=== PATIENT | female | born 1950 | race Two or more races ===

== ENCOUNTER 2023-12-29 20:34 | Emergency (ER) | payer MEDICARE, SELFPAY ==
[2023-12-29 20:41] VITALS: BP 212/91
[2023-12-29 20:49] VITALS: BP 193/126
[2023-12-29 20:50] LABS: Glucose - Point of Care 135 mg/dl (70-99)
[2023-12-29 20:59] LABS: % Basophils 0.6 % (0-2); % Eosinophils 1.1 % (0-6); % Immature Granulocytes 0.5 % (0-0.5); % Lymphocytes 27.1 % (20.5-51.1); % Monocytes 11.3 % (1.7-9.3); % Neutrophils 59.4 % (42.2-75.2); Absolute Basophils 0.1 10^3/uL (0-0.2); Absolute Eosinophils 0.1 10^3/uL (0-0.7); Absolute Immature Granulocytes 0.1 10^3/uL (0-0.05); Absolute Lymphocytes 2.6 10^3/uL (1.2-3.4); Absolute Monocytes 1.1 10^3/uL (0.1-0.6); Absolute Neutrophils 5.6 10^3/uL (1.4-6.5); Hematocrit 41.8 % (37.0-47.0); Hemoglobin 14.8 g/dL (12.0-16.0); Mean Corp Hgb Conc. 35.4 g/dL (33.0-37.0); Mean Corpuscular Hgb 31.5 pg (27.0-31.0); Mean Corpuscular Volume 88.9 fL (81.0-99.0); Mean Platelet Volume 12.2 fL (7.4-10.4); Nucleated Red Blood Cells % 0 %; Platelet Count 162 10^3/uL (130-400); Red Cell Dist. Width 12.9 % (11.5-14.5); White Blood Cell Count 9.4 10^3/uL (4.8-10.8)
[2023-12-29 21:00] VITALS: BP 144/111
[2023-12-29 21:15] LABS: ALT (SGPT) 30 U/L (0-35); AST (SGOT) 39 U/L (14-36); Albumin 4.9 g/dl (3.5-5.0); Alkaline Phosphatase 70 U/L (38-126); Blood Urea Nitrogen 25 mg/dl (7-17); Calcium 10.2 mg/dl (8.4-10.2); Carbon Dioxide 25 mmol/L (22-30); Chloride 101 mmol/L (98-107); Glucose 134 mg/dl (70-99); Potassium 3.9 mmol/L (3.5-5.1); Sodium 140 mmol/L (135-145); Total Bilirubin 0.4 mg/dl (0.2-1.3); Total Protein 7.9 g/dl (6.3-8.2); eGFR > 60.00
[2023-12-29 21:33] VITALS: BP 175/92
[2023-12-29 22:00] VITALS: BP 180/86
--- NOTE | 2023-12-29 22:28 | ED.GENMED ---
History of Present Illness
General
Chief Complaint: Dizziness
Source: patient
Exam Limitations: none
Time Seen by Provider: 12/29/23 21:15
History of Present Illness
History of Present Illness:
This is a 73 year old female that comes in with c/o dizziness. State that she was dozing and when she awoke with dizziness and could hardly walk. States that when she had her stroke in 2014 it was worse but it was the same in that she had balance
issues. States that right now it is not as bad as it was but she felt that her BP and HR were elevated. States that she also had shaking that she was unable to stop like a tremor. States that she does have clogged sinuses. States that she has a
headache with the dizziness. Denies any fever, chills, chest pain, SOB, abd pain, nausea, vomiting, diarrhea, urinary burning.
Past History
Past History
ED Past Medical History: CVA (Swallowing difficulty and balance issues), HTN and Other (Arthritis of the neck); Negative Asthma or Hypercholesterolemia
ED Past Surgical History: None
Social History
Tobacco: Former smoker
Alcohol: None
Personal: Single
Living: alone
Review of Systems
Review of Systems
All Other Systems: ROS reviewed and negative except as documented in HPI and ROS
Constitutional: Reports no symptoms; Denies fever or chills
EENT: Reports no symptoms
Respiratory: Reports no symptoms; Denies cough or trouble breathing
Cardiac: Denies chest pain
ABD/GI: Reports no symptoms; Denies abdominal pain, nausea, vomiting or diarrhea
: Reports no symptoms; Denies dysuria, frequency or urgency
Musculoskeletal: Reports no symptoms
Skin: Reports no symptoms
Neurological: Reports dizzy, headache and other (couldn't walk due to balance)
Psychiatric: Reports no symptoms
Phy Exam
General Physical Exam
General Presentation: no apparent distress
General age: appears stated age
General Skin: warm and dry
General Habitus: elderly
General Mental: alert
General Hydration: dry mucous membranes
ENT Exam
ENT Exam: TM's normal, pharynx normal and neck supple
Eye Exam
Eye Exam: PERRL and EOMI
Cardiovascular Exam
Cardiovascular Exam: regular rate/rhythm, no edema, no murmur and normal peripheral pulses
Pulmonary Exam
Pulmonary Exam: lungs clear, no respiratory distress, no rales, chest non tender, no crackles, no rhonchi, no wheezing and no cough
Gastrointestinal Exam
Gastrointestinal Exam: normal bowel sounds, non tender, soft, no organomegaly, no pulsatile mass and non distended
NIH Stroke Score
Level of Consciousness: 0 - Alert
LOC questions: 0-Answers both correctly
LOC Commands: 0-Performs both correctly
Best Gaze: 0-Normal
Visual Cazares: 0=Normal, no visual loss
Facial palsy: 0=Normal, symmetrical
Motor - Right Arm: 0=No drift 10 seconds
Motor - Left Arm: 0=No drift 10 seconds
Motor - Right Le-No drift 5 seconds
Motor - Left Le-No drift 5 seconds
Limb Ataxia: 0-Absent
Sensation: 0-Normal
Best Language: 0-No aphasia
Dysarthria: 0-Normal
Extinction and Inattention: 0-No abnormality
Total Score:: 0
Musculoskeletal Exam
Musculoskeletal Exam: full ROM, no edema and other (Hand grasp and push pulls equal)
Skin Exam
Skin Exam: normal color, warm/dry, no rash and no petechia
Psychiatric Exam
Psychiatric Exam: normal mood/affect
Course
Orders/Labs/Results
Orders:
Orders
12/29/23 20:39
EKG [Electrocardiogram (*1)] Urgent
Reason for Study: Vertigo / Dizzy
EKG- Treatment ONCE
12/29/23 20:52
CBC/With Diff [Complete Blood Count/With Diff] Urgent
CMP [Comprehensive Metabolic Panel] Urgent
12/29/23 22:26
0.9% Sodium Chloride 1000 ml [Nss] 1,000 ml IV BOLUS
Meclizine [Antivert] 50 mg PO NOW STA
12/29/23 22:27
CT Head W/o Iv Contrast Urgent
Comment: pRIOR cva
Reason For Exam: dIZZINESS, BALANCE OFF
12/29/23 22:55
Troponin I Urgent
12/29/23 23:30
Urinalysis Reflex To Culture Urgent
Date Specimen was Collected: 12/29/23
Time Specimen was Collected: 22:50
Abnormal Lab Results
12/29/23 12/29/23
20:49 20:52
MCH 31.5 H pg
(27.0-31.0)
MPV 12.2 H fL
(7.4-10.4)
Abs Immat Gran (auto) 0.1 H 10^3/uL
(0-0.05)
Absolute Monos (auto) 1.1 H 10^3/uL
(0.1-0.6)
Monocytes % 11.3 H %
(1.7-9.3)
BUN 25 H mg/dl
(7-17)
Glucose 134 H mg/dl
(70-99)
AST 39 H U/L
(14-36)
POC Glucose 135 H mg/dl
(70-99)
12/29/23 20:52
12/29/23 20:52
Dehydration AST slighlty elevated.
Vital Signs
Initial and Last Documented VS:
Initial Vital Signs
Temp Pulse Resp BP Pulse Ox
98.7 F 99 22 212/91 98
12/29/23 20:41 12/29/23 20:41 12/29/23 20:41 12/29/23 20:41 12/29/23 20:41
Last Documented Vital Signs
Temp Pulse Resp BP Pulse Ox
98.7 F 93 14 163/72 98
12/29/23 20:41 12/29/23 23:33 12/29/23 23:33 12/29/23 23:33 12/29/23 23:33
MDM/Problems Addressed
Differential Diagnosis Includes:
CVA, Vertigo
MDM/Problems Addressed:
This is a 73 year old female that comes in with c/o dizziness. States that she was dozing and when she got up her balance was off and she was dizzy. States that she could hardly walk.
Will check labs, urine, CT head and medicate with Antivert. Will also give IV fluids.
back into see patient. Patient states that she is feeling better. Patient has been able to walk to the bathroom without assistance. Explained that her blood work did show dehydration and that her CT is negative for any acute process. Old infarct was
noted. Patient urine is negative for infection. Her dizziness may be due to her dehydrated and vertigo. Will give patient a prescription for Antivert and have patient follow up with the family doctor. Patient to return with any concerns.
Chronic conditions affecting care: Neurological disorder (CVA, balance issues)
Acute Exacerbation and/or Progression of Chronic Illness: Neurological disorder (CVA, Balance issues)
*Radiology
Radiology exam reviewed: radiology read reviewed (CT head night hawk- Old infarct in the left cerebellum. NO definite acute infarct however MRI would have increased sensitivity. No acute intracranial hemorrhage, mass effect, or midline shift. Mild
global volume loss and chronic small vessel ischemia. )
*Pulse Oximetry
Patient hypoxic: no
*EKG
Interpreted by ED Provider?: Yes
Heart Rate: 78
Rate: normal
Rhythm: sinus arrhythmia
[place]: normal axis
Interval: normal interval
QRS Pattern: normal QRS
Ischemia: no ischemia
*Set Up Inspector Interpretation
Rate: normal
Heart Rate: 88
Rhythm: sinus
*Critical Care Note
Total Time (30-74mins, 75-104mins- exclusive of procedures): Not Applicable
ED Attending Note
-
Portions of this chart may have been created with voice recognition software.� Occasional wrong word or��sound alike� substitutions may have occurred due to the inherent limitations of voice recognition software.
Discharge Plan
Departure
Patient Disposition: Home (Routine Discharge)
Date of Disposition: 12/30/23
Time of Disposition: 00:20
Patient with high blood pressure during this ER visit?: Yes
Condition: Good
Covid-19: Not Applicable
Discharge Problem:
Dizziness
Instructions: Vertigo (a Type of Dizziness) (DC), BLOOD PRESSURE
Prescriptions:
New
meclizine [Antivert] 50 mg tablet
50 mg PO BID PRN (Reason: dizziness) Qty: 15 0RF
Referrals:
Elizabeth Martin DO [Family Provider] - Follow up in 2-3 days
Activity Restrictions/Additional Instructions:
As discussed, your blood work shows that you are dehydrated. Your Urine is negative for infection and your CT of the head is normal. You have been given Antivert here and your dizziness has improved. Please increase your water intake to 8-8oz
glasses daily. You have had a prescription sent to the Pharmacy for Antivert to help with any dizziness. Please follow up with the family doctor in the next 2- 3 days for recheck. IF YOU HAVE INCREASED DIZZINESS, OR YOU HAVE ANY OTHER CONCERNS
PLEASE RETURN TO THE EMERGENCY ROOM.
Interventions
Interventions:
*Risk Screen - Suicide Last Done: 12/29/23 20:41
*General Assessment Last Done: 12/29/23 20:41
*Neglect/Abuse Screening Last Done: 12/29/23 20:41
ED- Fall Risk Assessment Last Done: 12/29/23 23:46
*ED COVID-19 Vaccine History Last Done: 12/29/23 23:46
ED- Neurological Assessment Last Done: 12/29/23 21:25
ED- Cardiac Assessment Last Done: 12/29/23 21:25
Discharge Date and Time
Print Language: [place]
[2023-12-29] MEDS: ANTIVERT 50 MG PO (22:55)
[2023-12-29] MEDS: NSS 1000 IV (22:56)
[2023-12-29 23:33] VITALS: BP 163/72
[2023-12-29 23:37] LABS: Troponin I < 0.012 ng/ml
[2023-12-29 23:40] LABS: Urine Albumin Negative (Neg - Trace); Urine Bilirubin Negative (Negative); Urine Character Clear (Clear); Urine Color Straw; Urine Glucose Negative (Negative); Urine Ketone Negative (Negative); Urine Leukocyte Negative (Negative); Urine Nitrite Negative (Negative); Urine Occult Blood Negative (Negative); Urine Specific Gravity 1.005 (<1.030); Urine Urobilinogen Negative (Neg - 1+)
[2023-12-30] VITALS: BP 188/87
== END 2023-12-30 00:46 | disposition home or self-care (01) ==
LOC: EMR 20:34
PROVIDERS: Clinical Nurse Specialist Family Health; Emergency Medicine; EMERGENCY PHYSICIAN Student in an Organized Health Care Education/Training Program; FAMILY PHYSICIAN Family Medicine
DX: R42 Dizziness and giddiness (principal); I10 Essential (primary) hypertension; Z86.73 Personal history of transient ischemic attack (TIA), and cerebral infarction without residual deficits; Z87.891 Personal history of nicotine dependence
CPT/HCPCS: 99284; 70450; 80053; 81003; 82962; 84484; 85025; 93005

== ENCOUNTER 2023-12-31 18:06 | Emergency (ER) | payer MEDICARE, SELFPAY ==
--- NOTE | 2023-12-31 18:18 | ED.GENMED ---
ED Provider Triage
-
Patient seen by provider in Triage?: Seen in Triage
Attestation: A medical screening examination has been initiated by a qualified medical provider. Based on the assessment performed at this time, it has been determined that an emergent medical condition may exist and the patient has been informed
that further medical evaluation and possible additional diagnostic testing may be needed.
HPI: 73yoF here with shakiness while walking the dog 1 hour ago. Friend said it looked like she was going to pass out. Also c/o being thirsty. Seen in ED earlier this week for similar symptoms. CT head negative at that time.
GENERAL: Alert , in no apparent distress
EYE: No visual abnormalities.
NECK: Trachea midline
ENT: No visible abnormalities.
LUNGS: No acute respiratory distress
NEUROLOGICAL: Alert and oriented
SKIN: Skin intact. No visible changes.
MUSCULOSKELETAL: Moving extremities normally
PSYCH: Normal and appropriate interaction.
This is a medical evaluation conducted in person to initiate diagnostic evaluation and provide initial therapeutics. Please see further documentation by the treating clinician.
Cardiac labs and EKG ordered.
History of Present Illness
General
Chief Complaint: Weakness
Past History
Past History
ED Past Medical History: CVA (Swallowing difficulty and balance issues), HTN and Other (Arthritis of the neck); Negative Asthma or Hypercholesterolemia
ED Past Surgical History: None
Social History
Tobacco: Former smoker
Alcohol: None
Personal: Single
Living: alone
ED Attending Note
-
Portions of this chart may have been created with voice recognition software.� Occasional wrong word or��sound alike� substitutions may have occurred due to the inherent limitations of voice recognition software.
Discharge Plan
Departure
Prescriptions:
No Action
meclizine [Antivert] 50 mg tablet
50 mg PO BID PRN (Reason: dizziness) Qty: 15 0RF
Discharge Date and Time
Print Language: [place]
[2023-12-31 18:19] VITALS: BP 175/100
[2023-12-31 19:05] LABS: % Basophils 0.6 % (0-2); % Eosinophils 1.2 % (0-6); % Immature Granulocytes 0.3 % (0-0.5); % Lymphocytes 19.2 % (20.5-51.1); % Monocytes 8.5 % (1.7-9.3); % Neutrophils 70.2 % (42.2-75.2); Absolute Basophils 0.1 10^3/uL (0-0.2); Absolute Eosinophils 0.1 10^3/uL (0-0.7); Absolute Lymphocytes 1.8 10^3/uL (1.2-3.4); Absolute Monocytes 0.8 10^3/uL (0.1-0.6); Absolute Neutrophils 6.5 10^3/uL (1.4-6.5); Hematocrit 40.9 % (37.0-47.0); Hemoglobin 14.6 g/dL (12.0-16.0); Mean Corp Hgb Conc. 35.7 g/dL (33.0-37.0); Mean Corpuscular Hgb 31.6 pg (27.0-31.0); Mean Corpuscular Volume 88.5 fL (81.0-99.0); Mean Platelet Volume 12.2 fL (7.4-10.4); Nucleated Red Blood Cells % 0 %; Platelet Count 152 10^3/uL (130-400); Red Blood Cell Count 4.62 10^6/uL (4.20-5.40); Red Cell Dist. Width 13.2 % (11.5-14.5); White Blood Cell Count 9.3 10^3/uL (4.8-10.8)
[2023-12-31 19:26] LABS: Troponin I < 0.012 ng/ml
[2023-12-31 19:47] LABS: ALT (SGPT) 33 U/L (0-35); AST (SGOT) 47 U/L (14-36); Albumin 4.7 g/dl (3.5-5.0); Alkaline Phosphatase 81 U/L (38-126); Blood Urea Nitrogen 22 mg/dl (7-17); Carbon Dioxide 24 mmol/L (22-30); Chloride 101 mmol/L (98-107); Glucose 115 mg/dl (70-99); Potassium 4.2 mmol/L (3.5-5.1); Sodium 139 mmol/L (135-145); Total Bilirubin 0.4 mg/dl (0.2-1.3); Total Protein 7.7 g/dl (6.3-8.2); eGFR > 60.00
[2023-12-31 21:15] VITALS: BP 178/84
--- NOTE | 2023-12-31 21:53 | ED.GENMED ---
History of Present Illness
<ANDERSON Strange - Last Filed: 12/31/23 23:09>
General
Chief Complaint: Weakness
Source: patient
Exam Limitations: none
Time Seen by Provider: 12/31/23 21:09
History of Present Illness
History of Present Illness:
This is a 73 year old female that comes in with c/o tremors. States that she was here 2 nights ago as she had shaking and dizziness. Tonight she was out walking the dog with the neighbor and her hand started to shake. States that the neighbor was a
nurse and she told her to come to the ER. States that she has been sleeping a lot lately and she felt hot and her heart was racing. States that she thought maybe it was a reaction to the propel. Denies any fever, chest pain, SOB, abd pain, nausea,
vomiting, diarrhea, headache, dizziness, urinary burning.
Past History
<ANDERSON Strange - Last Filed: 12/31/23 23:09>
Past History
ED Past Medical History: CVA (Swallowing difficulty and balance issues), HTN, Hypercholesterolemia and Other (Arthritis of the neck); Negative Asthma
ED Past Surgical History: None
Social History
Tobacco: Former smoker
Alcohol: None
Personal: Single
Living: alone
Review of Systems
<ANDERSON Strange - Last Filed: 12/31/23 23:09>
Review of Systems
All Other Systems: ROS reviewed and negative except as documented in HPI and ROS
Constitutional: Denies fever or chills
EENT: Reports no symptoms
Respiratory: Reports no symptoms; Denies cough or trouble breathing
Cardiac: Reports no symptoms; Denies chest pain
ABD/GI: Reports no symptoms; Denies abdominal pain, nausea, vomiting or diarrhea
: Reports frequency; Denies dysuria or urgency
Musculoskeletal: Reports no symptoms
Skin: Reports no symptoms
Neurological: Reports other (Tremors slight left hand); Denies dizzy or headache
Psychiatric: Reports no symptoms
Phy Exam
<ANDERSON Strange - Last Filed: 12/31/23 23:09>
General Physical Exam
General Presentation: well appearing and no apparent distress
General age: appears stated age
General Skin: warm and dry
General Habitus: normal
General Mental: alert
General Hydration: dry mucous membranes
ENT Exam
ENT Exam: TM's normal, pharynx normal and neck supple
Eye Exam
Eye Exam: EOMI
Cardiovascular Exam
Cardiovascular Exam: regular rate/rhythm, no edema, no murmur and normal peripheral pulses
Pulmonary Exam
Pulmonary Exam: lungs clear, no respiratory distress, no rales, chest non tender, no crackles, no rhonchi, no wheezing and no cough
Gastrointestinal Exam
Gastrointestinal Exam: normal bowel sounds, non tender, soft, no organomegaly, no pulsatile mass and non distended
Musculoskeletal Exam
Musculoskeletal Exam: full ROM and no edema
Skin Exam
Skin Exam: normal color, warm/dry, no rash and no petechia
Psychiatric Exam
Psychiatric Exam: normal mood/affect
Course
<ANDERSON Strange - Last Filed: 12/31/23 23:09>
Orders/Labs/Results
Orders:
Orders
12/31/23 18:21
Electrocardiogram (*1) Urgent
Reason for Study: Vertigo / Dizzy
EKG- Treatment ONCE
12/31/23 18:55
Complete Blood Count/With Diff Urgent
Comprehensive Metabolic Panel Urgent
Troponin I Urgent
Abnormal Lab Results
12/31/23
18:55
MCH 31.6 H pg
(27.0-31.0)
MPV 12.2 H fL
(7.4-10.4)
Absolute Monos (auto) 0.8 H 10^3/uL
(0.1-0.6)
Lymphocytes % 19.2 L %
(20.5-51.1)
BUN 22 H mg/dl
(7-17)
Glucose 115 H mg/dl
(70-99)
AST 47 H U/L
(14-36)
12/31/23 18:55
12/31/23 18:55
Dehydration. Hyperglycemia. AST mildly elevated. Troponin <0.012
Vital Signs
Initial and Last Documented VS:
Initial Vital Signs
Temp Pulse Resp BP Pulse Ox
98.6 F 71 18 175/100 98
12/31/23 18:19 12/31/23 18:19 12/31/23 18:19 12/31/23 18:19 12/31/23 18:19
Last Documented Vital Signs
Temp Pulse Resp BP Pulse Ox
98.6 F 83 18 178/84 95
12/31/23 18:19 12/31/23 21:22 12/31/23 18:19 12/31/23 21:15 12/31/23 21:45
Parislt;Mian Paredes, - Last Filed: 01/01/24 00:51>
Orders/Labs/Results
Orders:
Orders
12/31/23 18:21
Electrocardiogram (*1) Urgent
Reason for Study: Vertigo / Dizzy
EKG- Treatment ONCE
12/31/23 18:55
Complete Blood Count/With Diff Urgent
Comprehensive Metabolic Panel Urgent
Troponin I Urgent
Abnormal Lab Results
12/31/23
18:55
MCH 31.6 H pg
(27.0-31.0)
MPV 12.2 H fL
(7.4-10.4)
Absolute Monos (auto) 0.8 H 10^3/uL
(0.1-0.6)
Lymphocytes % 19.2 L %
(20.5-51.1)
BUN 22 H mg/dl
(7-17)
Glucose 115 H mg/dl
(70-99)
AST 47 H U/L
(14-36)
12/31/23 18:55
12/31/23 18:55
Vital Signs
Initial and Last Documented VS:
Initial Vital Signs
Temp Pulse Resp BP Pulse Ox
98.6 F 71 18 175/100 98
12/31/23 18:19 12/31/23 18:19 12/31/23 18:19 12/31/23 18:19 12/31/23 18:19
Last Documented Vital Signs
Temp Pulse Resp BP Pulse Ox
98.6 F 83 18 178/84 95
12/31/23 18:19 12/31/23 21:22 12/31/23 18:19 12/31/23 21:15 12/31/23 21:45
<ANDERSON Strange - Last Filed: 12/31/23 23:09>
MDM/Problems Addressed
Differential Diagnosis Includes:
essential Tremors,
MDM/Problems Addressed:
This is a 73 year old female that comes in with c/o tremors of the left hand. Patient was seen here [address] was normal.
Will check labs and have Dr. Paredes into see patient. Explained that this may be essential tremors and will have patient follow up with the Neurologist for further evaluation.
Chronic conditions affecting care:
NA
Acute Exacerbation and/or Progression of Chronic Illness:
NA
<ANDERSON Strange - Last Filed: 12/31/23 23:09>
*Pulse Oximetry
Patient hypoxic: no
*EKG
Interpreted by ED Provider?: Yes
Heart Rate: 70
Rate: normal
Rhythm: sinus arrhythmia
[place]: normal axis
Interval: normal interval
QRS Pattern: normal QRS
Ischemia: no ischemia
*Navigation Teacher Interpretation
Rate: Navigation Teacher- N/A
*Critical Care Note
Total Time (30-74mins, 75-104mins- exclusive of procedures): Not Applicable
ED Attending Note
<ANDERSON Strange - Last Filed: 12/31/23 23:09>
-
Portions of this chart may have been created with voice recognition software.� Occasional wrong word or��sound alike� substitutions may have occurred due to the inherent limitations of voice recognition software.
<Mian Paredes DO - Last Filed: 01/01/24 00:51>
ED Attending Note
Patient seen and examined by attending physician: Yes
I performed the substantive portion of visit, reviewed & personally made and approve the management plan that is documented in note by myself or JOLYNN.: Yes
ED Attending Note:
Patient is a 73-year-old female who states that she is having tremors at rest. Her neighbor who was head nurse of a hospital in [place] noticed that this evening while they are having a walk. Patient has suffered from a CVA in the past. Patient
denied any ataxia, focal weakness, visual or speech difficulties. Patient was seen here couple nights ago for dizziness and dehydration. Patient states she has been drinking propel water and that she does not think it is sufficient enough for her.
Patient denies fever chills. Patient neurologically is intact and does not appear to be in any distress. Patient has no intention tremor or resting tremor. Patient does not have a neurologist. Patient will refer to the neurologist. We gave
some thought to starting the patient on Tegretol, gabapentin, etc. however given the patient's history of reactions to all medications it was decided that the better part of valor would be to refer her to neurology and not start any medications at
this time.
Discharge Plan
Departure
Patient Disposition: Home (Routine Discharge)
Date of Disposition: 12/31/23
Time of Disposition: 23:03
Patient with high blood pressure during this ER visit?: Yes
Condition: Good
Covid-19: Not Applicable
Discharge Problem:
Occasional tremors
Instructions: Essential Tremor, BLOOD PRESSURE
Prescriptions:
No Action
meclizine [Antivert] 50 mg tablet
50 mg PO BID PRN (Reason: dizziness) Qty: 15 0RF
Referrals:
Devora Franklin MD [Active] - Call in 1-3 days for appt
Elizabeth Martin DO [Family Provider] -
Activity Restrictions/Additional Instructions:
As discussed, your blood work shows very slight Dehydration. Your Troponin is normal. Please follow up with the Neurologist for further evaluation. IF YOU HAVE ANY OTHER CONCERNS PLEASE RETURN TO THE EMERGENCY ROOM.
Interventions
Interventions:
*Risk Screen - Suicide Last Done: 12/31/23 18:19
*General Assessment Last Done: 12/31/23 18:19
*Neglect/Abuse Screening Last Done: 12/31/23 18:19
ED- Fall Risk Assessment Last Done: 12/31/23 23:20
*ED COVID-19 Vaccine History Last Done: 12/31/23 18:19
*Nursing Disposition Last Done: 12/31/23 23:21
ED- Cardiac Assessment Last Done: 12/31/23 21:20
ED- Neurological Assessment Last Done: 12/31/23 21:20
ED- Pulmonary Assessment Last Done: 12/31/23 21:20
Discharge Date and Time
Discharge Date/Time: 12/31/23 23:22
Print Language: [place]
[2023-12-31 23:20] VITALS: BMI 34.4
== END 2023-12-31 23:22 | disposition home or self-care (01) ==
LOC: EMR 18:06
PROVIDERS: Physician Assistant; EMERGENCY PHYSICIAN Emergency Medicine; FAMILY PHYSICIAN Family Medicine
DX: R25.1 Tremor, unspecified (principal); I10 Essential (primary) hypertension; E78.00 Pure hypercholesterolemia, unspecified; M19.09 Primary osteoarthritis, other specified site; Y93.K1 Activity, walking an animal; Z86.73 Personal history of transient ischemic attack (TIA), and cerebral infarction without residual deficits; Z87.891 Personal history of nicotine dependence; Z88.8 Allergy status to other drugs, medicaments and biological substances; Z91.018 Allergy to other foods; Z91.048 Other nonmedicinal substance allergy status
CPT/HCPCS: 99283; 80053; 84484; 85025; 93005

== ENCOUNTER → 2024-01-07 14:01 | Outpatient (REF) | payer MEDICARE, SELFPAY | LOC: HWRCS 14:01 | PROVIDERS: ATTENDING PHYSICIAN Nuclear Medicine Nuclear Cardiology; FAMILY PHYSICIAN Family Medicine | DX: R93.1 Abnormal findings on diagnostic imaging of heart and coronary circulation (principal); I10 Essential (primary) hypertension | CPT/HCPCS: 93306 ==

== ENCOUNTER → 2024-05-19 14:01 | Outpatient (REF) | payer MEDICARE, SELFPAY | LOC: HWWDC 14:01 | PROVIDERS: ATTENDING PHYSICIAN Family Medicine; REFERRING PHYSICIAN Nuclear Medicine Nuclear Cardiology | DX: Z12.31 Encounter for screening mammogram for malignant neoplasm of breast (principal) | CPT/HCPCS: 77063; 77067 ==

== ENCOUNTER → 2024-07-15 15:34 | Outpatient (REF) | payer MEDICARE, SELFPAY | LOC: HWRAD 15:34 | PROVIDERS: ATTENDING PHYSICIAN Nuclear Medicine Nuclear Cardiology; FAMILY PHYSICIAN Family Medicine | DX: I77.9 Disorder of arteries and arterioles, unspecified (principal); I25.10 Atherosclerotic heart disease of native coronary artery without angina pectoris | CPT/HCPCS: 93880 ==

== ENCOUNTER → 2024-08-09 13:23 | Outpatient (REF) | payer MEDICARE, SELFPAY ==
[2024-08-09 16:21] LABS: HDL Cholesterol 68 mg/dl; LDL Cholesterol, Calculated 39 mg/dl; Total Cholesterol 126 mg/dl (50-199); Triglyceride 99 mg/dl (10-149); Very Low Density Lipoprotein 19 mg/dl (0-30)
== END ==
LOC: HWLAB 13:23
PROVIDERS: ATTENDING PHYSICIAN Nuclear Medicine Nuclear Cardiology; FAMILY PHYSICIAN Family Medicine
DX: I10 Essential (primary) hypertension (principal); R93.1 Abnormal findings on diagnostic imaging of heart and coronary circulation; E78.5 Hyperlipidemia, unspecified
CPT/HCPCS: 36415; 80061